=== PATIENT | female | born 1970 | race Caucasian/White ===

== ENCOUNTER 2016-10-27 08:45 | Outpatient (RCR) | payer OTHER ==
[~2016-10-27 08:45] MED LIST: ALB0.5V; AMT25T; ATEN25TA; ATEN50TA; BSP5T; DESV50TA; DICY20TA57; DOXY100C2 PO; ENAL5TAB; EXCEDRINE; EXEN5PEN3; FNT75TD; FURO20TA4; GABA800T2; GFN600TCR; GLIP10TA23; HCT25T; HYDR1CAP2; HYOS0.127; IRBE1TAB15; KCL10CCR; LOPE1TAB PO; MECL-106 PO; METH4TAB PO; MNTL10T; OMEP20CA6; PRISTIQ; TRAZ-28 PO; [UNRECOGNIZED DRUG - CODE]
== END 2016-10-28 14:03 | disposition home or self-care (01) ==
PROVIDERS: ATTEND Surgery
DX: Z02.71 Encounter for disability determination (principal)